=== PATIENT | male | born 1985 | race Caucasian/White ===

== ENCOUNTER 2018-10-24 19:20 | Emergency (ER) | payer OTHER ==
[2018-10-24 20:18] LABS: URINE APPEARANCE CLEAR; URINE BILIRUBIN NEGATIVE (NEGATIVE); URINE BLOOD NEGATIVE (NEGATIVE); URINE COLOR YELLOW; URINE GLUCOSE NEGATIVE (NEGATIVE); URINE KETONE NEGATIVE (NEGATIVE); URINE LEUKOCYTE ESTERASE NEGATIVE (NEGATIVE); URINE NITRATE NEGATIVE (NEGATIVE); URINE PROTEIN(semi-quant) TRACE mg/dL (NEGATIVE); URINE UROBILINOGEN NORMAL (NORMAL)
[2018-10-24 20:19] LABS: URINE MUCUS PRESENT (NOT PRESENT)
[2018-10-24 20:29] LABS: EOS # 0.2 (0.04-0.40); EOS % 2.1 % (0.0-4.0); HEMOGLOBIN 15.4 g/dL (13.5-18.0); LYMPH# 1.9 (1.50-4.00); MEAN CELL VOLUME 87 fl (78-100); MEAN CORPUSCULAR HEMOGLOBIN 31 pg (27-31); MEAN CORPUSCULAR HGB CONC 36 g/dL (33-37); MEAN PLATELET VOLUME 9.5 fl (7.4-10.4); MONO # 0.7 (0.20-0.80); NEU # 4.5 (1.40-6.50); PLATELET COUNT 278 K/mm3 (130-400); RED BLOOD COUNT 4.96 M/mm3 (4.20-5.60); RED CELL DISTRIBUTION WIDTH 12.3 % (11.5-14.5); WHITE BLOOD COUNT 7.3 K/mm3 (4.8-10.8)
[2018-10-24 20:37] LABS: ALBUMIN 4.3 g/dL (3.5-5.0); CALCIUM 9.6 mg/dL (8.3-10.5); POTASSIUM 3.4 mmol/L (3.5-5.1)
[2018-10-24 20:38] LABS: TOTAL PROTEIN 6.9 g/dL (6.4-8.3)
[2018-10-24 20:40] LABS: TOTAL BILIRUBIN 0.4 mg/dL (0.2-1.2)
[2018-10-24 22:06] VITALS: BP 122/69
== END 2018-10-24 22:06 | disposition home or self-care (01) ==
LOC: ED 19:20
PROVIDERS: Physician Assistant
DX: E86.0 Dehydration (principal); R94.31 Abnormal electrocardiogram [ECG] [EKG]; Z88.0 Allergy status to penicillin
CPT/HCPCS: J7030